=== PATIENT | male | born 1960 ===

== ENCOUNTER → 2016-04-15 | Outpatient (REF) | payer BC ==
[2016-04-15 14:33] LABS: FOLATE > 24.0 NG/ML; VITAMIN B12 LEVEL 316 PG/ML
[2016-04-15 15:00] LABS: FREE T4 1.01 NG/DL (0.76-1.46); TOTAL PROTEIN 6.8 GM/DL (6.4-8.2)
[2016-04-17 00:07] LABS: Lyme Disease IgG/IgM Antibodie <0.91 ISR (0.00-0.90); Lyme Disease IgM Ab Quantitati <0.80 index (0.00-0.79)
[2016-04-17 13:59] LABS: ALBUMIN 4.18 GM/DL (3.29-5.55); ALBUMIN % 61.4 % (55.8-66.1); GAMMA GLOBULIN % 11.6 % (11.1-18.8)
[2016-04-17 14:15] LABS: VITAMIN E LEVEL 10.1 mg/L (5.3-17.5)
== END ==
LOC: M LABNEURO 13:00
PROVIDERS: ATTEND Psychiatry & Neurology Neurology
DX: M54.10 Radiculopathy, site unspecified (principal)